=== PATIENT | male | born 1975 | race Caucasian/White ===

== ENCOUNTER → 2019-12-07 | Emergency (ER) | payer BC ==
[~2019-12-07] VITALS: Ht 175.3 cm; Wt 85.0 kg
[~2019-12-07] MED LIST: MECLIZINE 25MG TABLET PO ONE; SODIUM CHLORIDE 0.9% 1,000 ML IV ONE
[2019-12-07 14:13] LABS: BASOPHILS % 0.4 % (0.0-2.0); EOSINOPHILS % 0.3 % (0.0-5.0); HEMATOCRIT. 38.9 % (42.0-52.0); HEMOGLOBIN. 13.4 g/dL (14.0-18.0); LYMPHOCYTES % 9.8 % (20.0-50.0); MEAN CORPUSCULAR HEMOGLOBIN 30.3 pg (28.0-32.0); MEAN CORPUSCULAR VOLUME 87.8 fL (80.0-94.0); MEAN PLATELET VOLUME 9.4 fl (7.4-10.4); MONOCYTES % 4.7 % (2.0-8.0); NEUTROPHILS % 84.8 % (40.0-76.0); PLATELET 206 x1000/uL (130-400); RED BLOOD CELL COUNT 4.43 mill/uL (4.7-6.1); RED CELL DISTRIBUTION WIDTH 13.2 % (11.6-14.6)
[2019-12-07 14:18] LABS: CHLORIDE 106 mEq/L (98-107)
[2019-12-07 15:12] VITALS: BP 123/70
== END ==
LOC: ER 12:47
DX: R42 Dizziness and giddiness (principal)
CPT/HCPCS: 36415; 80053; 85025; 93005; 96360; 99284; J7030; J8597